=== PATIENT | male | born 1940 | race Caucasian/White ===

== ENCOUNTER 2019-02-07 05:13 | Day surgery (SDC) ==
[2019-01-30 10:27] LABS: HEMATOCRIT 43.3 % (42.0-52.0); HEMOGLOBIN 14.8 g/dL (14.0-18.0); MCHC 34.2 g/dL (33-37); MCV 96.7 FL (81-99); MPV 11.3 FL (7.4-10.4); RBC 4.48 XMIL (4.7-6.1); RDW 12.2 % (11.5-14.5); WBC 5.86 X1000 (4.8-10.8)
[2019-01-30 10:36] LABS: INR 0.95; PROTIME 13.4 Seconds (11.0-16.0)
--- NOTE | 2019-01-30 11:04 | EKG Report ---
Test Performed on : 01/30/2019 10:01:32 AM Test Reason : PAT Blood Pressure : / mmHG Vent. Rate : 055 BPM Atrial Rate : 055 BPM P-R Int : 194 ms QRS Dur : 092 ms QT Int : 410 ms P-R-T Axes : 075 080 055 degrees QTc Int : 392 ms Sinus bradycardia. Otherwise normal ECG When compared with ECG of 26-MAR-2013 13:38, No significant change was found Confirmed by Jw RANGEL, Richard Savage ([id number]) on 01/31/2019 10:18:40 AM
[2019-01-30 11:12] LABS: AGAP 11; BUN 19 mg/dL (8-22); CALCIUM 9.6 mg/dL (8.8-10.2); CHLORIDE 105 mmol/L (98-107); COSMO 286; CREATININE 1.1 mg/dL (0.7-1.2); ESTIMATED GFR > 60; GLUCOSE 116 mg/dL (70-104); POTASSIUM 4.7 mmol/L (3.5-5.1); SODIUM 142 mmol/L (136-145); TCO2 26 mmol/L (25-35)
[2019-02-07] MEDS ORDERED: LR 1,000 ML ONE ×2 (06:09→06:33)
[2019-02-07] MEDS ORDERED: KEFZOL 1 GM/D5W 2 GM/100 ML IVPB ONE (06:09)
[2019-02-07] MEDS ORDERED: PEPCID ONE (06:12)
[2019-02-07] MEDS ORDERED: DIPRIVAN 1% ONE (06:26)
[2019-02-07] MEDS ORDERED: NORCURON ONE (06:28)
[2019-02-07] MEDS ORDERED: XYLOCAINE-MPF 2% ONE (06:28)
[2019-02-07] MEDS ORDERED: QUELICIN (DOSE) ONE (06:28)
[2019-02-07] MEDS ORDERED: SODIUM CHLORIDE 0.9% 10 ML ONE ×2 (06:28→09:21)
[2019-02-07] MEDS ORDERED: MARCAINE 0.25% PF/EPI 1:200,000 ONE (06:33)
[2019-02-07] MEDS ORDERED: B & O 15A SUPP ONE (06:33)
[2019-02-07] MEDS ORDERED: MARCAINE 0.25% ONE (06:55)
[2019-02-07] MEDS ORDERED: ZOFRAN ONE (07:11)
[2019-02-07] MEDS ORDERED: LUBRIFRESH PM OPH OINTMENT ONE (07:11)
[2019-02-07] MEDS ORDERED: DECADRON ONE (07:11)
[2019-02-07] MEDS ORDERED: ROBINUL ONE ×2 (07:13→10:01)
[2019-02-07] MEDS ORDERED: FENTANYL ONE (07:21)
[2019-02-07] MEDS ORDERED: OFIRMEV 1000 MG/ISOTONIC SOLN 1,000 MG/100 ML BOTTLE ONE (07:43)
[2019-02-07 08:40] LABS: URINE SOURCE CATH
[2019-02-07] MEDS ORDERED: EPHEDRINE ONE (08:45)
[2019-02-07 08:50] LABS: BILIRUBIN URINE NEGATIVE (NEGATIVE); BLOOD URINE SMALL (NEGATIVE); COLOR YELLOW; GLUCOSE URINE NEGATIVE (NEGATIVE); KETONE URINE NEGATIVE (NEGATIVE); LEUKOCYTES URINE NEGATIVE (NEGATIVE); NITRITE URINE NEGATIVE (NEGATIVE); PH URINE 5.5; PROTEIN URINE TRACE mg/dL (NEGATIVE); SP GRAVITY URINE 1.021; TURBIDITY URINE CLEAR (CLEAR); UROBILINOGEN URINE NORMAL (NORMAL)
[2019-02-07 08:51] LABS: UR EPITHELIAL CELLS <10 /HPF (<10); URINE BACTERIA NEGATIVE /HPF; URINE RBC 20-40 /HPF (<10); URINE WBC <10 /HPF (<10)
[2019-02-07] MEDS ORDERED: NEO-SYNEPHRINE ONE (09:21)
[2019-02-07] MEDS ORDERED: D5 1/2 NS 1,000 ML ONE (10:42)
[2019-02-07] MEDS: DILAUDID ONE ×3 (10:51→11:51)
[2019-02-07] MEDS ORDERED: DITROPAN ONE (11:43)
[2019-02-07] MEDS ORDERED: NORCO-5 ONE (11:43)
[2019-02-07] MEDS ORDERED: PHENERGAN PO PRN (12:00)
[2019-02-07] MEDS ORDERED: PHENERGAN IV PRN (12:00)
[2019-02-07] MEDS ORDERED: LABETALOL IV PRN (12:00)
[2019-02-07] MEDS ORDERED: SODIUM CHLORIDE 0.9% INJ PRN (12:00)
[2019-02-07] MEDS ORDERED: PHENERGAN PR PRN (12:00)
[2019-02-07] MEDS: D5 1/2 NS 1,000 ML IV SCH (12:00)
[2019-02-07] MEDS ORDERED: ZOFRAN IV PRN (12:00)
[2019-02-07] MEDS ORDERED: DITROPAN PO PRN (12:00)
[2019-02-07] MEDS ORDERED: NORCO-5 PO PRN (12:00)
[2019-02-07] MEDS ORDERED: NORCO-10 PO PRN (12:00)
[2019-02-07] MEDS: MORPHINE IV PRN ×3 (13:24→20:55)
[2019-02-07] MEDS ORDERED: OFIRMEV 1000 MG/ISOTONIC SOLN 1,000 MG/100 ML BOTTLE IV PRN (14:00)
[2019-02-07] MEDS: NORCO-7.5 PO PRN (15:45)
[2019-02-07] MEDS: KEFZOL 1 GM/D5W 1 GM/50 ML IVPB IV SCH ×2 (15:47→22:38)
[2019-02-07] MEDS ORDERED: AMBIEN PO PRN (20:04)
[2019-02-07] MEDS ORDERED: COLACE PO SCH (21:00)
[2019-02-07] MEDS ORDERED: NAMENDA PO SCH (21:00)
[2019-02-08] MEDS: MORPHINE IV PRN (01:16)
[2019-02-08 03:57] LABS: CREATININE BODY FLUID 0.9 mg/dL
[2019-02-08] MEDS: D5 1/2 NS 1,000 ML IV SCH (04:39)
[2019-02-08] MEDS: NORCO-7.5 PO PRN (06:07)
[2019-02-08] MEDS: KEFZOL 1 GM/D5W 1 GM/50 ML IVPB IV SCH (06:07)
[2019-02-08 06:53] LABS: HEMOGLOBIN 11.2 g/dL (14.0-18.0); MCV 97.3 FL (81-99); RBC 3.39 XMIL (4.7-6.1); WBC 13.76 X1000 (4.8-10.8)
[2019-02-08 06:54] LABS: MCHC 33.9 g/dL (33-37); MPV 12.1 FL (7.4-10.4); RDW 12.2 % (11.5-14.5)
[2019-02-08] MEDS ORDERED: NEXIUM PO SCH (07:00)
[2019-02-08 07:11] LABS: AGAP 5; BUN 17 mg/dL (8-22); CALCIUM 8.1 mg/dL (8.8-10.2); CHLORIDE 101 mmol/L (98-107); COSMO 274; ESTIMATED GFR > 60; GLUCOSE 147 mg/dL (70-104); POTASSIUM 4.5 mmol/L (3.5-5.1); SODIUM 135 mmol/L (136-145); TCO2 29 mmol/L (25-35)
[2019-02-08 07:22] VITALS: BP 122/43
[2019-02-08] MEDS ORDERED: PERIDEX MT SCH (09:00)
[2019-02-08] MEDS ORDERED: COZAAR PO SCH (09:00)
[2019-02-08] MEDS ORDERED: NORVASC PO SCH (09:00)
[2019-02-08] MEDS ORDERED: PATIENT'S OWN MED PO SCH ×2 (09:00)
--- NOTE | 2019-03-20 18:33 | OPERATIVE NOTE ---
PROCEDURE DATE: 02/07/2019 SURGEON: Karthik Abdullahi MD PREOPERATIVE DIAGNOSIS: 1. Benign prostatic hypertrophy. 2. Bladder stones. 3. Weak stream. 4. History of open abdominal surgery. POSTOPERATIVE DIAGNOSES: 1. Benign prostatic hypertrophy. 2. Bladder stones. 3. Weak stream. 4. History of open abdominal surgery. PROCEDURE: 1. Laparoscopic lysis of adhesions. 2. Robotic-assisted laparoscopic simple prostatectomy. 3. Open cystolithotomy. INDICATIONS: This is an 78-year-old male with a longstanding history of BPH who has had transurethral resection of the prostate and cystolitholapaxy in 2002. He presented with significantly weakened stream and gross hematuria. He had undergone cystoscopy which revealed very large prostate with pronounced median lobe. He was also noted to have bladder stones. He desires definitive surgical intervention. He was counseled on repeat TURP and cystolitholapaxy versus simple prostatectomy with cystolithotomy. Given his very large gland estimated over 160 mL by ultrasound, he wants to proceed with simple prostatectomy. He has had partial colectomy and has a large abdominal scar. FINDINGS: He had extensive adhesions of colon mesentery to the anterior abdominal wall requiring lysis of adhesions. Please note, I spent approximately 30 minutes lysing the adhesions. He had a very pronounced median lobe and large prostate. The procedure performed was equivalent to the open simple prostatectomy but allowed us greater visualization and better hemostasis along the way. Multiple bladder stones were removed and sent off for gross pathologic identification. There was watertight closure of cystotomy at the conclusion of the case at 300 mL of sterile fluid instilled. DESCRIPTION OF PROCEDURE: After obtaining informed consent, patient was brought to the operating room. Perioperative antibiotics and general endotracheal anesthesia were administered. He was placed in lithotomy position with upper and lower extremities appropriately padded. Tap block was administered per anesthesia. He was prepped and draped in sterile fashion. An 18-Libyan Pardo catheter was introduced with 15 mL of sterile water instilled into the balloon. Given his large abdominal incision, we elected to place a Veress needle in the left upper quadrant. A small stab incision was made with an 11 blade and Veress needle connected to saline-filled syringe was introduced. We confirmed positive drop test, followed by aspiration of fluid in the syringe without evidence of GI contents or blood. We increased pneumoperitoneal pressure to 15 mmHg. We then marked out my trocar sites in the standard prostatectomy fashion. I made my first incision in the left upper quadrant for the 12 mm escrow assistant trocar port with Bovie electrocautery and introduced a 12 mm trocar. Through it, I introduced a robotic camera and his peritoneal cavity was examined. He had quite a bit of adhesions of bowel and mesentery to the anterior abdominal wall in the center. I then placed one of the other 8 mm trocars under direct vision and used laparoscopic scissors to sharply divide and take down the adhesions. We obtained hemostasis as we took down the mesenteric attachments to the abdominal wall along the way. It did not appear that we were too close to the lumen of the bowel. Again, please note, it took me approximately 30 minutes to take the adhesions down and they were quite extensive, increasing in my operating time by 30%. Once the adhesions were taken down, I was able to place the rest of my trocars under direct vision. He was then placed in exaggerated lithotomy position and the robot was docked. I began by incising the medial umbilical ligament and dropping the bladder, allowing us to access the space of Retzius. Once that was done, I cleared fat off of endopelvic fascia of the prostate. Again, the prostate appeared to be quite large. I was able to appreciate the level of the bladder neck by gentle tugging on the Pardo balloon. I then made a transverse cystotomy incision approximately 5 cm above the bladder neck with monopolar electrocautery. Eventually, the lumen of the bladder was seen. He had multiple bladder stones. Since this was made through a large open incision in the bladder, we were able to extract the stones 1 by 1 and placed them into the EndoCatch bag. It was then placed to the side for further extraction through an open incision down the road. He once again had a prominent median lobe. I was able to see his bilateral ureteral orifices and they were demarcated with monopolar cautery. I then scored the mucosa just around the median lobe and circumferentially around the prostate, avoiding the ureteral orifice. We then used monopolar cautery as well as a grasper to develop the plane between the prostatic adenoma and prostatic capsule at 6 o'clock. The plane was then extended toward 5 and 7 o'clock and 3 and 9 o'clock respectively. Hemostasis obtained along the way. Once I freed up some of the prostatic tissue circumferentially, I used a #1 Prolene suture and placed it through the prostatic adenoma to use it as a retraction suture with the help of a fourth arm. I then carefully circumferentially shelled out prostatic adenoma, staying along the capsule, making sure we did not violate especially anteriorly. With the Pardo catheter through the prostatic urethra, we eventually came across the distal edge of our resection, visualizing the lip of the urethra. The prostate was then delivered and placed into an EndoCatch bag. It was very, very large and fairly nodular. The inspected the cavity showed no evidence of active bleeding. I then used 3-0 V-Loc sutures to reapproximate the bladder neck with the distal end of the prostatic urethra in a clockwise and then counterclockwise fashion. We made sure that the ureteral orifices were visible and were not involved in reapproximation of the edges. Following that, pneumoperitoneal pressure was decreased to 3 mmHg without any evidence of active bleeding. A 20-Libyan, 3-way Pardo catheter was then introduced with 15 mL in the balloon instilled. Fourth arm was removed and a Frederick drain was placed and secured to the skin with a nylon suture. His peritoneal cavity was examined 1 more time and there was no evidence of bleeding. I then used 0 V-Loc suture to close this mucosa and muscularis propria of the bladder in a running fashion. This was followed by a second layer closure of muscularis propria and perivesical fat in a Lambert fashion. We then instilled 300 mL of sterile fluid via Pardo catheter, allowing the bladder to distend, and there was no evidence of urine leakage. A Frederick drain was placed to bulb suction. The robot was undocked. The supraumbilical incision was extended and through that large open incision I was able to extract the bladder stones, as well as the prostate. Wounds were copiously irrigated and a PDS suture was used to close the fascia in a running fashion Supraumbilically. A 0 Vicryl suture was used to close the 12 mm escrow assistant trocar port. The wounds were irrigated again and 4-0 Monocryl suture was used for subcuticular closure. This was followed by application of Covidien adhesive agent. Again, drain was placed to bulb suction and Pardo catheter was connected to continuous bladder irrigation with normal saline. The patient was extubated and taken to PACU for further recovery. ESTIMATED BLOOD LOSS: 700 mL. SPECIMENS REMOVED: 1. Prostate. 2. Bladder stones. DRAINS: 1. Frederick drain. 2. A 20-Libyan, 3-way Pardo catheter. DISPOSITION: To PACU, subsequently room for observation with continuous bladder irrigation. cc: Karthik Abdullahi MD
== END 2019-02-08 10:19 | disposition home or self-care (01) ==
LOC: OR 05:13 → 4N 05:13 → OR 02-08 10:19
PROVIDERS: ATTEND Urology
CPT/HCPCS: 80048; 81001; 82570; 85027; 85610; 85730; 88300; 88309; 88344; 93005; 93010; 94799; A9270; J0131; J0330; J0690; J1100; J1170; J2270; J2370; J2405; J3010; J7120; S0020; S2900

== ENCOUNTER 2019-12-05 11:04 | Inpatient (IN) ==
[2019-12-05 11:47] LABS: INFLUENZA A NEGATIVE (NEGATIVE); INFLUENZA B NEGATIVE (NEGATIVE)
[2019-12-05 12:46] LABS: BASO# 0.03 X1000 (0.0-0.2); BASO% 0.4 % (0.0-0.8); EOS# 0.52 X1000 (0.0-0.7); EOS% 7.4 % (0.0-10.0); HEMATOCRIT 44.3 % (42.0-52.0); HEMOGLOBIN 14.7 g/dL (14.0-18.0); IMM GRAN# 0.02 X1000 (0.0-0.04); IMM GRAN% 0.3 % (0.0-0.5); LYMPH# 1.12 X1000 (1.2-3.4); LYMPH% 15.9 % (20.5-51.1); MCH 31.8 PG (27-31); MCHC 33.2 g/dL (33-37); MCV 95.9 FL (81-99); MONO# 0.86 X1000 (0.11-0.59); MONO% 12.2 % (1.7-9.3); MPV 11.4 FL (7.4-10.4); NEUT# 4.48 X1000 (1.4-6.5); NEUT% 63.8 % (42.2-75.2); PLT 118 X1000 (130-400); RBC 4.62 XMIL (4.7-6.1); RDW 12.7 % (11.5-14.5); WBC 7.03 X1000 (4.8-10.8)
[2019-12-05 12:57] LABS: AGAP 10; ALBUMIN 3.8 g/dL (3.5-5.0); ALKALINE PHOSPHATASE 80 U/L (32-122); BUN 20 mg/dL (8-22); CALCIUM 9.7 mg/dL (8.8-10.2); CHLORIDE 101 mmol/L (98-107); COSMO 277; CREATININE 0.9 mg/dL (0.7-1.2); ESTIMATED GFR > 60; GLUCOSE 136 mg/dL (70-104); GOT 33 U/L (10-34); GPT 27 U/L (10-44); MAGNESIUM 2.1 mg/dL (1.5-2.7); POTASSIUM 4.5 mmol/L (3.5-5.1); SODIUM 136 mmol/L (136-145); TCO2 25 mmol/L (25-35); TOTAL PROTEIN 6.9 g/dL (6.3-8.3)
--- NOTE | 2019-12-05 13:19 | EKG Report ---
Test Performed on : 12/05/2019 12:17:36 PM Test Reason : COUGH,SOB Blood Pressure : / mmHG Vent. Rate : 057 BPM Atrial Rate : 057 BPM P-R Int : 180 ms QRS Dur : 094 ms QT Int : 392 ms P-R-T Axes : 052 046 067 degrees QTc Int : 381 ms Sinus bradycardia. Otherwise normal ECG When compared with ECG of 30-JAN-2019 10:01, No significant change was found Unconfirmed Result
--- NOTE | 2019-12-05 14:35 | Diag Imaging Result Doc PS360 ---
EXAM: CHEST-1 VIEW HISTORY: SOB TECHNIQUE: Single view. COMPARISON: 10/30/2019 FINDINGS: Heart size is within normal limits. There is been a less optimal inspiratory result compared with prior study. There is baseline basilar interstitial fibrosis. Basilar interstitial markings have increased compared with prior , possibly related to atelectasis or developing pneumonia particularly on the left. There are probable trace effusions. IMPRESSION: Increasing bibasilar lung markings suggestive of acute atelectasis or interstitial infiltrate superimposed on baseline fibrosis . Consider follow-up with PA and lateral in full inspiration when with the patient is able. Electronically signed by Lakeshia Sullivan 12/05/2019 2:32 PM
[2019-12-05 14:37] LABS: BE 0.2 mmoll (-3.0-3.0); BLOOD TYPE ARTERIAL; O2(CT) 19.9 mL/dL (15.0-23.0); O2HB 94.2 % (95.0-99.0); PCO2(98.6) 42 mmHg (35-45); PO2(98.6) 78 mmHg (60-100); SAMPLE BLOOD; SAO2 96.8 % (95.0-100.0); pH(98.6) 7.39 (7.35-7.45)
[2019-12-05] MEDS ORDERED: SOLU-MEDROL IV ONE (14:38)
[2019-12-05] MEDS ORDERED: ROCEPHIN 1 GM in NS 50 ML IV ONE (14:38)
[2019-12-05] MEDS ORDERED: ZITHROMAX PO ONE (14:38)
[2019-12-05 14:39] LABS: ALLEN TEST YES; MODALITY ROOM AIR
[2019-12-05] MEDS ORDERED: SODIUM CHLORIDE 0.9% INJ ONE (15:01)
[2019-12-05] MEDS ORDERED: TORADOL IV ONE (15:01)
[2019-12-05] MEDS ORDERED: PEPCID IV ONE (15:01)
--- NOTE | 2019-12-05 16:52 | EKG Report ---
Test Performed on : 12/05/2019 4:09:15 PM Test Reason : bradycardia,cp Blood Pressure : / mmHG Vent. Rate : 051 BPM Atrial Rate : 051 BPM P-R Int : 192 ms QRS Dur : 092 ms QT Int : 438 ms P-R-T Axes : 050 037 055 degrees QTc Int : 403 ms Sinus bradycardia. Otherwise normal ECG When compared with ECG of 05-DEC-2019 12:17, (Unconfirmed) No significant change was found Unconfirmed Result
[2019-12-05 18:11] LABS: CK-MB 10.97 ng/mL (0.0-5.0)
--- NOTE | 2019-12-05 19:04 | HISTORY AND PHYSICAL ---
PRIMARY CARE PROVIDER: Osman Gore MD OPTICAL SCIENTIST: Deacon Galloway MD CHIEF COMPLAINT: Shortness of breath. HISTORY OF PRESENT ILLNESS: Mr. Groves is a pleasant 79-year-old male who is sitting up on the side of the bed, eating [employer]. He carries a past medical history of hypertension, recently diagnosed with H. pylori. He reports he is normally able to walk 1 mile twice a day, and over the course of a month, he has been shortened to about 50 yards. It worsened today while he was trying to go into [facility]. Each time he had he would go about 50 yards, then would have to stop and rest. When he was coming out he had to sit down. He was very short of breath, felt like he could vomit and almost felt like he might pass out. He called his daughter, who brought him to the ED to be evaluated. Again, they report worsening shortness of breath, weakness. He felt a catch when he was trying to breathe, but no chest pain, per se. There has been no fever, no chills, no nausea, no vomiting, no diarrhea, no constipation, no abdominal pain. No syncope. No sick contacts. Workup in the ED revealed a possible early developing pneumonia on the left with some trace effusions. EKG shows sinus bradycardia, which is normal for the patient. He did have one elevated troponin at 74, put in for a CK that is 277, currently pending a proBNP. He has bilateral lower extremity pitting edema. We will admit him, continue IV antibiotics for pneumonia, and we will do a cardiac rule-out. PAST MEDICAL HISTORY: Hypertension, recent diagnosis of H. 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 FAMILY HISTORY: Leukemia. SOCIAL HISTORY: No tobacco, alcohol or illicit drug use. HOME MEDICATIONS: Lansoprazole, memantine, Norvasc, losartan, amoxicillin, clarithromycin, hydroxyzine, trazodone. ALLERGIES: No known drug allergies. REVIEW OF SYSTEMS: Twelve-point review of systems completed and negative except for those mentioned in HPI. PHYSICAL EXAMINATION: VITAL SIGNS: Temperature is 98.2 degrees, heart rate 62, respiratory rate 18, blood pressure 146/65, O2 is 100% on room air. GENERAL: Mr. Groves is an 79-year-old gentleman who is sitting on the side of bed, eating [employer] in no acute distress. HEENT: Atraumatic, normocephalic. PERRL. NECK: Supple. Trachea midline. CARDIOVASCULAR: S1, S2 appreciated. No murmurs, gallops or rubs noted. RESPIRATORY: Lung sounds relatively clear bilaterally. GASTROINTESTINAL: Soft, nontender, nondistended. Positive bowel sounds x4 quadrants. EXTREMITIES: Lower extremities, about 2+ pitting edema, ankle and pedal; trace going up. NEUROLOGIC: No focal deficits noted. DIAGNOSTIC DATA: Chest x-ray shows possible early pneumonia on the left; trace effusions. Two EKGs show sinus bradycardia. ASSESSMENT AND PLAN: 1. Early pneumonia on the left. He has no white count. Initial lactate was negative. We will continue with intravenous antibiotics, supplemental oxygen as needed. Aggressive pulmonary toilet, bronchodilators. 2. Elevated troponin. He denies any chest pain. We will continue to trend. He also has a slightly elevated CK. We will make him NPO after midnight if we need to do a stress test in the a.m. His last set of cardiac enzymes will be at 7 a.m. 3. Bilateral lower extremity pitting edema. We will check a proBNP and an echocardiogram in the a.m. 4. Helicobacter pylori, currently being treated by Dr. Galloway. We will continue home regimen when verified. 5. Hypertension. Continue home medications when verified. 6. Sinus bradycardia. The patient is aware. He was seen by Dr. Maggie Landeros for this before. 7. Dyspnea upon exertion. Again, we will give him supplemental oxygen and treat him for pneumonia, rule out any cardiac issues as well. 8. Further recommendation to follow physician evaluation, laboratory and diagnostic data. Dictated by JACKELINE Gomes for Sim Stanley MD cc: MD Osman Grace MD
--- NOTE | 2019-12-05 19:12 | HISTORY AND PHYSICAL ---
ADDENDUM: Patient seen and examined by myself. Full note dictated and discussed with nurse practitioner. HISTORY OF PRESENT ILLNESS: Patient is very pleasant 79-year-old male who notes that he was in his usual state health walking around [employer]. States he always had low heart rates. He does have some swelling in his lower extremities. States that over the last couple months he has had increasing shortness of breath and fatigue. Today, while he was walking around [employer], he felt as though he is going to pass out, had to sit down. Therefore they brought him to the ER. Upon evaluation, he is awake, alert, and oriented. He is very pleasant. He is in no current respiratory distress. Heart rates 40s to mid 50s. X-ray demonstrates a possible pneumonia. We are going to admit him to the hospital, place him on antibiotics, telemetry, and we will follow. cc: Sim Stanley MD
[2019-12-05 20:13] LABS: CK-MB 11.1 ng/mL (0.0-5.0)
[2019-12-06 06:31] LABS: AGAP 12; ALBUMIN 3.8 g/dL (3.5-5.0); ALKALINE PHOSPHATASE 83 U/L (32-122); BUN 21 mg/dL (8-22); CALCIUM 9.5 mg/dL (8.8-10.2); CHLORIDE 103 mmol/L (98-107); COSMO 282; CREATININE 0.8 mg/dL (0.7-1.2); ESTIMATED GFR > 60; GLUCOSE 197 mg/dL (70-104); GOT 66 U/L (10-34); GPT 33 U/L (10-44); POTASSIUM 4.9 mmol/L (3.5-5.1); SODIUM 137 mmol/L (136-145); TCO2 22 mmol/L (25-35); TOTAL PROTEIN 6.3 g/dL (6.3-8.3)
[2019-12-06 06:52] LABS: CK INDEX 8.1 (0.0-2.5); CK-MB 45.09 ng/mL (0.0-5.0)
--- NOTE | 2019-12-06 06:52 | Diag Imaging Result Doc PS360 ---
CHEST-2 VIEWS - 12/06/2019 INDICATION: Pneumonia COMPARISON: 12/05/2019 FINDINGS: Lung volumes are improved. Otherwise stable increased interstitial markings in the lung bases bilaterally. These are nonspecific, representing either fibrosis or bronchitis. There is a small nodular density or infiltrate in the lateral left lung base stable from the prior exam. This was not visible in 2013. IMPRESSION: No change from prior. Small left basilar pulmonary nodule or nodular infiltrate is indeterminate. Follow-up or chest CT recommended. Electronically signed by Brannon Whitlock 12/06/2019 6:50 AM
[2019-12-06] MEDS ORDERED: NITROGLYCERIN TOP SCH (07:15)
[2019-12-06 08:01] LABS: EOS# 0.01 X1000 (0.0-0.7); EOS% 0.1 % (0.0-10.0); HEMATOCRIT 44.4 % (42.0-52.0); HEMOGLOBIN 14.7 g/dL (14.0-18.0); IMM GRAN# 0.02 X1000 (0.0-0.04); IMM GRAN% 0.2 % (0.0-0.5); LYMPH# 0.79 X1000 (1.2-3.4); LYMPH% 7.4 % (20.5-51.1); MCH 31.2 PG (27-31); MCHC 33.1 g/dL (33-37); MCV 94.3 FL (81-99); MONO% 1.9 % (1.7-9.3); MPV 11.8 FL (7.4-10.4); NEUT# 9.69 X1000 (1.4-6.5); NEUT% 90.4 % (42.2-75.2); PLT 125 X1000 (130-400); RBC 4.71 XMIL (4.7-6.1); RDW 12.4 % (11.5-14.5); WBC 10.71 X1000 (4.8-10.8)
[2019-12-06] MEDS ORDERED: LOPRESSOR PO SCH (09:00)
--- NOTE | 2019-12-06 10:35 | EKG Report ---
Test Performed on : 12/06/2019 08:48:35 AM Test Reason : elev trop Blood Pressure : / mmHG Vent. Rate : 062 BPM Atrial Rate : 062 BPM P-R Int : 184 ms QRS Dur : 096 ms QT Int : 428 ms P-R-T Axes : 068 042 054 degrees QTc Int : 434 ms Normal sinus rhythm. Normal ECG When compared with ECG of 05-DEC-2019 16:09, (Unconfirmed) No significant change was found Confirmed by Leoncio Infante MD ([id number]) on 12/09/2019 9:24:20 AM
[2019-12-06 10:36] LABS: LYMPHS 9 % (21-51); MONO 1 % (1-9); SEGS 90 % (42-75)
[2019-12-06 11:53] VITALS: BP 121/57
[2019-12-06] MEDS ORDERED: ROCEPHIN 1 GM in NS 50 ML IV SCH (14:00)
--- NOTE | 2019-12-06 14:13 | ECHO REPORT ---
ORDER DATE: 12/06/2019 INDICATION: Dyspnea. FINDINGS: 1. Right atrium appears normal in size. 2. Mild tricuspid regurgitation. RV systolic pressure of 28. 3. Normal RV size and systolic function. 4. Trace pulmonic insufficiency. 5. Severe left atrial enlargement with a volume index of 51. 6. No mitral valve prolapse. Trace mitral regurgitation. No mitral stenosis. 7. Normal LV size, end-diastolic dimension of 4.7 cm. Normal wall thicknesses with a posterior and interventricular septal wall thickness of 1.1 cm each. Normal LV systolic function. Estimated EF of 65 to 70 percent. Indeterminate diastolic function. 8. Aortic valve opens well. It is trileaflet. No evidence of stenosis or insufficiency. 9. Aorta appears normal in visualized segments. 10. No pericardial effusion seen. cc: Teddy Edwards MD
--- NOTE | 2019-12-07 03:25 | DISCHARGE SUMMARY ---
ADMISSION DATE: 12/05/2019 DISCHARGE DATE: 12/06/2019 DISCHARGE DIAGNOSES: 1. Non-ST segment elevation myocardial infarction. Troponin was 45 on admit, currently 443. 2. Syncopal episode. 3. Granuloma versus pneumonia left lower lobe. 4. Bilateral edema. 5. Recent history of Helicobacter pylori, currently treated. 6. Hypertension. 7. History of sinus bradycardia, though the heart rates have been in the mid 80s to low 70s during the hospitalization. CONSULTATIONS: Consult Cardiology. PROCEDURES: Echo, results pending. BRIEF HOSPITAL COURSE: Patient is a very pleasant 79-year-old male who typically he has been up walking around and will usually walk a mile 2 or 3 times a week. Over the past 2 or 3 months, he has had a gradual decrease in his ability to walk secondary to shortness of breath. He was at [employer] walking around, became short of breath, lightheaded, thought he was going to pass out, had to sit down. He was seen in the ER with a negative EKG and normal enzymes. We did convince him to stay in the hospital. His last troponin, after being normal twice, had gone from 44, 45 to 443. CPK has gone from 225 to 560 and MB fraction is elevated to 45. After discussion with Mr. Groves in Cardiology, we have decided to transfer him to [facility] for left heart catheterization. DISPOSITION: No discharge disposition was able to be performed as patient is being transitioned to [facility]. All further instructions per them after his left heart catheterization. cc: Sim Stanley MD
== END 2019-12-06 12:21 | disposition short-term general hospital (02) | DRG 280 ==
LOC: P.ED 11:04 → P.MEDSURG 17:23
PROVIDERS: ATTEND Family Medicine